=== PATIENT | female | born 1995 | race Two or more races ===

== ENCOUNTER 2018-11-24 12:51 | Emergency (ER) | payer MEDICAID ==
[~2018-11-24] VITALS: Ht 167.6 cm; Wt 63.5 kg
[2018-11-24 12:51] VITALS: BP 110/80
[~2018-11-24 12:51] MED LIST: NKM
--- NOTE | 2018-11-24 12:51 | NUR ---
ED Nurse Note: Patient brought in by ambulance RA [id number] from home c/o abdominal pain"all over her lower abdomen", nausea and vomiting since 5AM this morning. patient is actively vomiting yellow contents. patient reports hx of gastritis. patient denies diarrhea. her big cousin by the bedside. instructed patient should not be drinking or eating at this time, until being seen by a doctor and get cleared.
[2018-11-24] MEDS ORDERED: LORazepam Inj 2mg/ml 1ml IV ONE (13:15)
--- NOTE | 2018-11-24 13:25 | NUR ---
ED Nurse Note: patient reports she is unable to give urine sample at this time notified Dr. Price.
[2018-11-24] MEDS ORDERED: Morphine Sulfate 4mg/ml Inj (IV USE ONLY) IVP ONE (13:30)
[2018-11-24 13:39] LABS: HEMOGLOBIN 12.4 G/DL (12.0-16.0); MEAN CORPUSCULAR VOLUME 87 FL (80-99); PLATELET COUNT 325 K/UL (150-450); RED BLOOD COUNT 4.25 M/UL (4.20-5.40); RED CELL DISTRIBUTION WIDTH 11.3 % (11.6-14.8); WHITE BLOOD COUNT 13.3 K/UL (4.8-10.8)
[2018-11-24 13:40] LABS: ANION GAP 10 mmol/L (5-15); BLOOD UREA NITROGEN 5 mg/dL (7-18); CALCIUM 9.3 MG/DL (8.5-10.1); CARBON DIOXIDE 22 MMOL/L (21-32); CHLORIDE 101 MMOL/L (98-107); CREATININE 0.7 MG/DL (0.55-1.30); SODIUM 133 MMOL/L (136-145)
[2018-11-24 13:45] VITALS: BP 117/54
[2018-11-24 13:45] LABS: ALANINE AMINOTRANSFERASE 12 U/L (12-78); ALBUMIN 4.4 G/DL (3.4-5.0); ALBUMIN/GLOBULIN RATIO 1.2 (1.0-2.7); ALKALINE PHOSPHATASE 88 U/L (46-116); ASPARTATE AMINO TRANSFERASE 13 U/L (15-37); BILIRUBIN,TOTAL 0.4 MG/DL (0.2-1.0)
--- NOTE | 2018-11-24 14:10 | NUR ---
ED Nurse Note: patient taken to U/S in stable vital sign.
[2018-11-24] MEDS ORDERED: D5 1/2NS w/KCl 20mEq 1,000 ML IV SCH (15:00)
--- NOTE | 2018-11-24 15:10 | Emergency Room Report ---
History of Present Illness General Chief Complaint: Abdominal Pain Source: Patient Present Illness HPI Patient is a 22-year-old female presents after increased lower abdominal pain. Patient reports having acute onset of symptoms approximate 5:00 this morning. She reports having multiple episodes of vomiting as well as diarrhea. She reports having normal menstrual periods. She reports having increased abdominal discomfort which is severe in nature. She denies any fever. She reports having prior appendectomy as well as cholecystectomy. She denies any fever. She reports feeling hot. Allergies: Coded Allergies: No Known Allergies (Unverified , 11/24/18) Patient History Last Menstrual Period: Now: No Reviewed Nursing Documentation: PMH: Agreed; PSxH: Agreed Nursing Documentation-PMH Past Medical History: No History, Except For Hx Gastrointestinal Problems: Yes - GASTRITIS Review of Systems All Other Systems: negative except mentioned in HPI Physical Exam Vital Signs Date Time Temp Pulse Resp B/P (MAP) Pulse Ox O2 Delivery O2 Flow Rate FiO2 11/24/18 12:46 97.9 100 16 110/80 (90) 99 Room Air Sp02 EP Interpretation: reviewed, normal General Appearance: alert, GCS 15, mild distress Head: atraumatic ENT: normal ENT inspection, hearing grossly normal, normal voice Neck: normal inspection, full range of motion, supple, no bony tend Respiratory: normal inspection, lungs clear, normal breath sounds, no respiratory distress, no retraction, no wheezing Cardiovascular #1: normal inspection, regular rate, rhythm, no edema Gastrointestinal: normal bowel sounds, non tender, soft, no guarding, no hernia , tenderness, other - laporoscopic surgica Genitourinary: no CVA tenderness Musculoskeletal: normal inspection, back normal, normal range of motion Neurologic: normal inspection, alert, responsive, speech normal Psychiatric: normal inspection, judgement/insight normal, mood/affect normal Medical Decision Making Diagnostic Impression: Primary Impression: Intrauterine Additional Impressions: Hyperemesis Marijuana smoker Cigarette smoker ER Course Patient is a 22-year-old female presented after increased abdominal pain and vomiting. Differential diagnosis include was not limited to ruptured ectopic , ovarian torsion, kidney stone, gastroenteritis among others. Because of complexity of patient's case laboratory testing and imaging studies were ordered. Patient was noted to have increased lower abdominal cramping. She was noted to be pelvic ultrasound which showed intrauterine approximately 6 weeks. This appeared to be viable. Patient was noted to have significant discomfort was given IV morphine as well as IV Zofran and Reglan for nausea. She was noted to have some improvement after medications. She was given capsaicin topically which seemed to improve her pain dramatically. Patient given IV hydration due to episodes of vomiting. She was also given oral potassium. Patient appears to be stable for discharge and follow-up with primary care physician. Labs Test 11/24/18 13:16 11/24/18 14:56 White Blood Count 13.3 K/UL (4.8-10.8) Red Blood Count 4.25 M/UL (4.20-5.40) Hemoglobin 12.4 G/DL (12.0-16.0) Hematocrit 37.0 % (37.0-47.0) Mean Corpuscular Volume 87 FL (80-99) Mean Corpuscular Hemoglobin 29.3 PG (27.0-31.0) Mean Corpuscular Hemoglobin Concent 33.6 G/DL (32.0-36.0) Red Cell Distribution Width 11.3 % (11.6-14.8) Platelet Count 325 K/UL (150-450) Mean Platelet Volume 6.2 FL (6.5-10.1) Neutrophils (%) (Auto) % (45.0-75.0) Lymphocytes (%) (Auto) % (20.0-45.0) Monocytes (%) (Auto) % (1.0-10.0) Eosinophils (%) (Auto) % (0.0-3.0) Basophils (%) (Auto) % (0.0-2.0) Differential Total Cells Counted 100 Neutrophils % (Manual) 91 % (45-75) Lymphocytes % (Manual) 6 % (20-45) Monocytes % (Manual) 3 % (1-10) Eosinophils % (Manual) 0 % (0-3) Basophils % (Manual) 0 % (0-2) Band Neutrophils 0 % (0-8) Platelet Estimate Adequate Platelet Morphology Normal Red Blood Cell Morphology Normal Prothrombin Time 10.6 SEC (9.30-11.50) Prothromb Time International Ratio 1.0 (0.9-1.1) Activated Partial Thromboplast Time 26 SEC (23-33) Sodium Level 133 MMOL/L (136-145) Potassium Level 3.0 MMOL/L (3.5-5.1) Chloride Level 101 MMOL/L (98-107) Carbon Dioxide Level 22 MMOL/L (21-32) Anion Gap 10 mmol/L (5-15) Blood Urea Nitrogen 5 mg/dL (7-18) Creatinine 0.7 MG/DL (0.55-1.30) Estimat Glomerular Filtration Rate > 60 mL/min (>60) Glucose Level 128 MG/DL (74-106) Calcium Level 9.3 MG/DL (8.5-10.1) Total Bilirubin 0.4 MG/DL (0.2-1.0) Aspartate Amino Transf (AST/SGOT) 13 U/L (15-37) Alanine Aminotransferase (ALT/SGPT) 12 U/L (12-78) Alkaline Phosphatase 88 U/L (46-116) Total Protein 8.2 G/DL (6.4-8.2) Albumin 4.4 G/DL (3.4-5.0) Globulin 3.8 g/dL Albumin/Globulin Ratio 1.2 (1.0-2.7) Lipase 69 U/L (73-393) Urine Color Pale yellow Urine Appearance Clear Urine pH 8 (4.5-8.0) Urine Specific [place] 1.010 (1.005-1.035) Urine Protein Negative (NEGATIVE) Urine Glucose (UA) Negative (NEGATIVE) Urine Ketones 2+ (NEGATIVE) Urine Blood 1+ (NEGATIVE) Urine Nitrite Negative (NEGATIVE) Urine Bilirubin Negative (NEGATIVE) Urine Urobilinogen Normal MG/DL (0.0-1.0) Urine Leukocyte Esterase Negative (NEGATIVE) Urine RBC 2-4 /HPF (0 - 2) Urine WBC 0-2 /HPF (0 - 2) Urine Squamous Epithelial Cells Few /LPF (NONE/OCC) Urine Bacteria Few /HPF (NONE) Urine HCG, Qualitative Positive (NEGATIVE) Urine Opiates Screen Positive (NEGATIVE) Urine Barbiturates Screen Negative (NEGATIVE) Phencyclidine (PCP) Screen Negative (NEGATIVE) Urine Amphetamines Screen Negative (NEGATIVE) Urine Benzodiazepines Screen Negative (NEGATIVE) Urine Cocaine Screen Negative (NEGATIVE) Urine Marijuana (THC) Screen Positive (NEGATIVE) Last Vital Signs Date Time Temp Pulse Resp B/P (MAP) Pulse Ox O2 Delivery O2 Flow Rate FiO2 11/24/18 13:53 97.9 11/24/18 13:45 66 24 117/54 100 Room Air Status: improved Disposition: HOME, SELF-CARE Condition: Stable Jerad Price MD Nov 24, 2018 15:10
[2018-11-24 15:12] LABS: APPEARANCE,URINE CLEAR; BILIRUBIN, URINE NEGATIVE (NEGATIVE); COLOR,URINE PALE YELLOW; GLUCOSE, URINE (UA) NEGATIVE (NEGATIVE); KETONES,URINE 2+ (NEGATIVE); LEUKOCYTE ESTERASE ,URINE NEGATIVE (NEGATIVE); NITRITE,URINE NEGATIVE (NEGATIVE); PH,URINE 8 (4.5-8.0); PROTEIN,URINE NEGATIVE (NEGATIVE); UROBILINOGEN,URINE NORMAL MG/DL (0.0-1.0)
[2018-11-24] MEDS ORDERED: Metoclopramide 10mg/2ml Inj IVP ONE (15:15)
[2018-11-24] MEDS ORDERED: DiphenhydrAMINE 50mg/ml Inj IVP ONE (15:15)
[2018-11-24] MEDS ORDERED: Capsaicin 0.075% Cream TOPIC ONE (15:30)
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
[2018-11-24] MEDS ORDERED: ONDANSETRON ODT4 MG BC (16:31)
--- NOTE | 2018-11-24 19:05 | NUR ---
HAND-OFF: Report given to Debbie ARCE.
--- NOTE | 2018-11-24 19:09 | NUR ---
report received from YAZMIN Farmer
[2018-11-24 19:20] VITALS: BP 110/60
--- NOTE | 2018-11-24 19:20 | NUR ---
ER DISCHARGE NOTE: Patient is cleared to be discharged per ERMD, pt is aox4, on room air, with stable vital signs. pt was given dc and prescription instructions, pt was able to verbalize understanding, pt id band and iv site removed without complications. pt is able to ambulate with steady gait. pt took all belongings.
== END 2018-11-24 19:20 | disposition home or self-care (01) ==
LOC: EDBD 12:51 → EMR 15:50
DX: O26.891 Other specified pregnancy related conditions, first trimester (principal); Z3A.01 Less than 8 weeks gestation of pregnancy; R10.30 Lower abdominal pain, unspecified; O21.0 Mild hyperemesis gravidarum; F17.210 Nicotine dependence, cigarettes, uncomplicated
CPT/HCPCS: 36415; 76801; 80053; 80307; 81003; 81025; 83690; 84702; 85007; 85025; 85610; 85730; 86850; 86900; 86901; 96361; 96365; 96366; 96375; 96376; 99284; J1200; J2270; J2405; J2765; J8499

== ENCOUNTER → 2020-01-24 | Emergency (ER) | payer MEDICAID ==
[~2020-01-24] VITALS: Ht 162.6 cm; Wt 69.4 kg
[~2020-01-24] MED LIST changes: +CEPHALEXIN500 MG ORAL; +Capsaicin 0.075% Cream TOPIC STA; +Dicyclomine HCl 10mg/5ml oral soln ORAL ONE; +DiphenhydrAMINE 50mg/ml Inj IVP ONE; +Haloperidol Lactate 2 MG in D5W 55 ML IVPB ONE; +LORazepam Inj 2mg/ml 1ml IV ONE; +Lidocaine 2% Visc 15ml soln ORAL ONE; +Mylanta II UD 30ml ORAL ONE; +ONDANSETRON ODT4 MG BC; +REGLAN5 MG ORAL; +ZOFRAN ODT8 MG ORAL
--- NOTE | 2020-01-24 15:14 | Emergency Room Report ---
History of Present Illness General Chief Complaint: Abdominal Pain Source: Patient Present Illness HPI 24-year-old female with history of appendectomy and cholecystectomy, history of cannabinol hyperemesis syndrome, here with vomiting and abdominal pain. Patient says her symptoms started early this morning around 12 hours prior to coming to the emergency department. Has vomited multiple times nonbilious and nonbloody. Admits to daily marijuana smoking. Denies other drug use or alcohol use. States pain is sharp in nature, located diffusely and worse in the epigastric region, does not otherwise radiate. No fevers, chills, chest pain, palpitations, shortness of breath, back pain, diarrhea, dysuria. Allergies: Coded Allergies: No Known Allergies (Unverified , 11/24/18) COVID-19 Screening Contact w/high risk pt: No Experienced COVID-19 symptoms?: No COVID-19 Testing performed FINANCIAL REPORTING MANAGER: No Nursing Documentation-[facility] Past Medical History: No History, Except For Hx Gastrointestinal Problems: Yes - GASTRITIS Review of Systems All Other Systems: negative except mentioned in HPI Physical Exam Vital Signs Date Time Temp Pulse Resp B/P (MAP) Pulse Ox O2 Delivery O2 Flow Rate FiO2 01/24/20 14:52 98.4 76 20 127/84 (98) 98 Room Air Sp02 EP Interpretation: reviewed, normal General Appearance: alert, non-toxic, other - Appears highly uncomfortable, writhing in bed complaining of pain Head: normocephalic, atraumatic Eyes: bilateral eye normal inspection, bilateral eye PERRL ENT: hearing grossly normal, normal pharynx, no angioedema, normal voice Neck: full range of motion, supple/symm/no masses Respiratory: chest non-tender, lungs clear, normal breath sounds, speaking full sentences Cardiovascular #1: regular rate, rhythm, no edema Cardiovascular #2: 2+ carotid (R), 2+ carotid (L), 2+ radial (R), 2+ radial (L), 2+ dorsalis pedis (R), 2+ dorsalis pedis (L) Gastrointestinal: normal bowel sounds, soft, non-distended, no guarding, no rebound, other - Old appearing healed surgical scars in the right lower quadrant and right upper quadrant. Abdomen nondistended, no rebound or guarding. Subjective tenderness on palpation diffusely Rectal: deferred Genitourinary: normal inspection, no CVA tenderness Musculoskeletal: back normal, normal range of motion, calf tenderness, gait/station normal, non-tender Neurologic: alert, motor strength/tone normal, sensory intact, responsive, speech normal Psychiatric: judgement/insight normal, memory normal, mood/affect normal, no suicidal/homicidal ideation Lymphatic: no adenopathy Medical Decision Making Diagnostic Impression: Primary Impression: Asymptomatic bacteriuria Additional Impressions: Early stage of Vomiting ER Course Total critical care time: Approximately 25 minutes Due to a high probability of clinically significant, life threatening deterioration, the patient required the highest level of preparedness to intervene emergently and I personally spent this critical care time directly and personally managing the patient. This critical care time included obtaining a history, examining the patient, pulse oximetry, ordering and reviewing studies, ordering treatments, evaluating response to treatment and updating management plan as needed, frequent reassessment and discussion with other providers as well as arranging for ultimate disposition. This critical to care time was performed to assess and manage the high probability of life-threatening d eterioration that could result in multiorgan failure. This critical care time is separate from the separately billable procedures and treating other patients. Laboratory Tests Test 01/24/20 15:15 01/24/20 16:35 White Blood Count 11.6 K/UL (4.8-10.8) H Red Blood Count 4.84 M/UL (4.20-5.40) Hemoglobin 13.0 G/DL (12.0-16.0) Hematocrit 40.2 % (37.0-47.0) Mean Corpuscular Volume 83 FL (80-99) Mean Corpuscular Hemoglobin 26.9 PG (27.0-31.0) L Mean Corpuscular Hemoglobin Concent 32.4 G/DL (32.0-36.0) Red Cell Distribution Width 14.6 % (11.6-14.8) Platelet Count 428 K/UL (150-450) Mean Platelet Volume 5.8 FL (6.5-10.1) L Neutrophils (%) (Auto) 86.6 % (45.0-75.0) H Lymphocytes (%) (Auto) 8.8 % (20.0-45.0) L Monocytes (%) (Auto) 3.2 % (1.0-10.0) Eosinophils (%) (Auto) 0.1 % (0.0-3.0) Basophils (%) (Auto) 1.3 % (0.0-2.0) Sodium Level 140 MMOL/L (136-145) Potassium Level 3.4 MMOL/L (3.5-5.1) L Chloride Level 104 MMOL/L (98-107) Carbon Dioxide Level 22 MMOL/L (21-32) Anion Gap 14 mmol/L (5-15) Blood Urea Nitrogen 10 mg/dL (7-18) Creatinine 0.7 MG/DL (0.55-1.30) Estimated Glomerular Filtration Rate > 60 mL/min (>60) Glucose Level 138 MG/DL (74-106) H Calcium Level 9.4 MG/DL (8.5-10.1) Total Bilirubin 0.4 MG/DL (0.2-1.0) Aspartate Amino Transferase (AST) 17 U/L (15-37) Alanine Aminotransferase (ALT) 16 U/L (12-78) Alkaline Phosphatase 108 U/L (46-116) Total Protein 8.7 G/DL (6.4-8.2) H Albumin 4.7 G/DL (3.4-5.0) Globulin 4.0 g/dL Albumin/Globulin Ratio 1.2 (1.0-2.7) Lipase 76 U/L (73-393) Human Chorionic Gonadotropin, Quant 234 mIU/mL (1-6) H Urine Color Pale yellow Urine Appearance Slightly cloudy Urine pH 7 (4.5-8.0) Urine Specific [place] 1.005 (1.005-1.035) Urine Protein Negative (NEGATIVE) Urine Glucose (UA) Negative (NEGATIVE) Urine Ketones 1+ (NEGATIVE) H Urine Blood Negative (NEGATIVE) Urine Nitrite Negative (NEGATIVE) Urine Bilirubin Negative (NEGATIVE) Urine Urobilinogen Normal MG/DL (0.0-1.0) Urine Leukocyte Esterase Negative (NEGATIVE) Urine RBC 0-2 /HPF (0 - 2) Urine WBC 0-2 /HPF (0 - 2) Urine Squamous Epithelial Cells Few /LPF (NONE/OCC) Urine Bacteria Occasional /HPF (NONE) Urine HCG, Qualitative Positive (NEGATIVE) Urine Opiates Screen Negative (NEGATIVE) Urine Barbiturates Screen Negative (NEGATIVE) Phencyclidine (PCP) Screen Negative (NEGATIVE) Urine Amphetamines Screen Negative (NEGATIVE) Urine Benzodiazepines Screen Negative (NEGATIVE) Urine Cocaine Screen Negative (NEGATIVE) Urine Marijuana (THC) Screen Positive (NEGATIVE) H 24-year-old female here with lower abdominal discomfort and vomiting. Patient was hemodynamically stable in the emergency department. She was initially attempting to elope from the emergency department "because I just want to leave. I do not feel good." The patient was able to be verbally de-escalated. She was given Haldol and Ativan. She had good resolution of her symptoms and her agitation. test came back positive. She had evidence of bacteriuria but was denying any symptoms of cystitis. She was given a prescription for Keflex for her asymptomatic bacteriuria. Pelvic ultrasound was performed however hCG level was very low and no evidence of ectopic or intrauterine were seen. 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 She was unable to tell me when her last menstrual period was. I told the patient that she may have a ectopic and needs proper follow-up. She expressed understanding and was discharged. Last Vital Signs Date Time Temp Pulse Resp B/P (MAP) Pulse Ox O2 Delivery O2 Flow Rate FiO2 01/24/20 14:52 98.4 76 20 127/84 (98) 98 Room Air Scripts Cephalexin* (KEFLEX*) 500 Mg Capsule 500 MG ORAL EVERY 12 HOURS for 7 Days, #14 CAP 0 Refills Prov: Willis Cardenas M.D. 01/24/20 Metoclopramide Hcl* (REGLAN*) 5 Mg Tablet 5 MG ORAL EVERY 6 HOURS for 7 Days, #14 TAB Prov: Willis Cardenas M.D. 01/24/20 Willis Cardenas M.D. Jan 24, 2020 15:14
[2020-01-24 15:38] LABS: HEMATOCRIT 40.2 % (37.0-47.0); MEAN CORPUSCULAR VOLUME 83 FL (80-99); PLATELET COUNT 428 K/UL (150-450); RED BLOOD COUNT 4.84 M/UL (4.20-5.40); RED CELL DISTRIBUTION WIDTH 14.6 % (11.6-14.8); WHITE BLOOD COUNT 11.6 K/UL (4.8-10.8)
[2020-01-24 15:39] LABS: LYMPHOCYTES % (AUTO) 8.8 % (20.0-45.0); NEUTROPHILS % (AUTO) 86.6 % (45.0-75.0)
[2020-01-24 15:40] LABS: BASOPHILS % (AUTO) 1.3 % (0.0-2.0); EOSINOPHILS % (AUTO) 0.1 % (0.0-3.0); MONOCYTES % (AUTO) 3.2 % (1.0-10.0)
[2020-01-24 15:46] LABS: ANION GAP 14 mmol/L (5-15); BLOOD UREA NITROGEN 10 mg/dL (7-18); CALCIUM 9.4 MG/DL (8.5-10.1); CARBON DIOXIDE 22 MMOL/L (21-32); CHLORIDE 104 MMOL/L (98-107); CREATININE 0.7 MG/DL (0.55-1.30); POTASSIUM 3.4 MMOL/L (3.5-5.1); SODIUM 140 MMOL/L (136-145)
[2020-01-24 15:51] LABS: ALANINE AMINOTRANSFERASE 16 U/L (12-78); ALBUMIN 4.7 G/DL (3.4-5.0); ALBUMIN/GLOBULIN RATIO 1.2 (1.0-2.7); ALKALINE PHOSPHATASE 108 U/L (46-116); ASPARTATE AMINO TRANSFERASE 17 U/L (15-37); BILIRUBIN,TOTAL 0.4 MG/DL (0.2-1.0)
[2020-01-24 17:07] LABS: APPEARANCE,URINE SLIGHTLY CLOUDY; BILIRUBIN, URINE NEGATIVE (NEGATIVE); COLOR,URINE PALE YELLOW; GLUCOSE, URINE (UA) NEGATIVE (NEGATIVE); KETONES,URINE 1+ (NEGATIVE); LEUKOCYTE ESTERASE ,URINE NEGATIVE (NEGATIVE); NITRITE,URINE NEGATIVE (NEGATIVE); PH,URINE 7 (4.5-8.0); PROTEIN,URINE NEGATIVE (NEGATIVE); UROBILINOGEN,URINE NORMAL MG/DL (0.0-1.0)
--- NOTE | 2020-01-24 18:18 | Diagnostic Imaging Report ---
EXAM: US First Trimester , Transabdominal and Transvaginal CLINICAL HISTORY: PAIN TECHNIQUE: Real-time transabdominal and transvaginal obstetrical ultrasound of the maternal pelvis and a first trimester with image documentation. Transvaginal imaging was used for better evaluation of the fetus and adnexa. COMPARISON: No previous studies. FINDINGS: Gestation: No intrauterine gestation is noted. Early intrauterine or ectopic gestations cannot be performed per Placenta/amniotic fluid: Cannot be adequately evaluated due to the early gestational age. Uterus/cervix: Possible bicornuate uterus. Heterogeneity of the uterine parenchyma. The uterus measures 5.7 x 4.7 x 3.5 cm. Endometrial stripe measures 1.1 cm. No myometrial mass. Ovaries: The left ovary measures 3.7 x 1.9 x 2.9 cm. Right ovary measures 3 x 2.1 x 3.3 cm. A 1 cm complex right ovarian cyst is noted, possibly a corpus luteum cyst. Normal flow to the ovaries. Free fluid: No free fluid. IMPRESSION: 1. 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 Heterogeneity of the uterine parenchyma of uncertain significance. 3. No intrauterine gestational sac. 4. Early intrauterine or ectopic gestations cannot be excluded and clinical correlation and correlation with laboratory values are advised. 5. Possible right ovarian corpus luteum cyst per 6. Flow is demonstrated to both ovaries.
[2020-01-24 18:23] VITALS: BP 118/74
== END | disposition home or self-care (01) ==
LOC: EDUNIT# 14:41 → EDBD 14:52 → EMR 15:15
DX: O21.9 Vomiting of pregnancy, unspecified (principal); R82.71 Bacteriuria; Z90.89 Acquired absence of other organs; Z90.49 Acquired absence of other specified parts of digestive tract; O34.80 Maternal care for other abnormalities of pelvic organs, unspecified trimester; N83.209 Unspecified ovarian cyst, unspecified side; Z3A.00 Weeks of gestation of pregnancy not specified
CPT/HCPCS: 36415; 76801; 80053; 80307; 81003; 81025; 83690; 84702; 85025; 96361; 96374; 96375; J1200; J1630; J7030; S0028; Z7502; 99291

== ENCOUNTER 2020-03-13 21:04 | Emergency (ER) | payer MEDICAID ==
[~2020-03-13] VITALS: Ht 162.6 cm; Wt 79.4 kg
[~2020-03-13 21:04] MED LIST changes: -Capsaicin 0.075% Cream TOPIC STA; -Dicyclomine HCl 10mg/5ml oral soln ORAL ONE; -DiphenhydrAMINE 50mg/ml Inj IVP ONE; -Haloperidol Lactate 2 MG in D5W 55 ML IVPB ONE; -LORazepam Inj 2mg/ml 1ml IV ONE; -Lidocaine 2% Visc 15ml soln ORAL ONE; -Mylanta II UD 30ml ORAL ONE
--- NOTE | 2020-03-13 21:10 | NUR ---
ED Nurse Note: Pt BIBA from home c/o N/V for 6hrs without relief, pt has a hx of colitis. Pt does not regularly taken medication r/t symptoms. PT is A&Ox4, VSS. Pt actively vomiting. PT placed on vehicle monitor technician, IV established and blood sent to lab.
[2020-03-13 21:22] VITALS: BP 125/79
[2020-03-13] MEDS ORDERED: D5NS 1,000 ML IV ONE (21:30)
[2020-03-13] MEDS ORDERED: Morphine Sulfate 4mg/ml Inj (IV USE ONLY) IVP ONE (21:30)
[2020-03-13 21:53] LABS: HEMATOCRIT 42.6 % (37.0-47.0); HEMOGLOBIN 14.1 G/DL (12.0-16.0); MEAN CORPUSCULAR VOLUME 85 FL (80-99); PLATELET COUNT 428 K/UL (150-450); RED BLOOD COUNT 5.03 M/UL (4.20-5.40); RED CELL DISTRIBUTION WIDTH 14.2 % (11.6-14.8); WHITE BLOOD COUNT 17.3 K/UL (4.8-10.8)
[2020-03-13 21:55] LABS: ANION GAP 13 mmol/L (5-15); BLOOD UREA NITROGEN 10 mg/dL (7-18); CALCIUM 9.5 MG/DL (8.5-10.1); CARBON DIOXIDE 24 MMOL/L (21-32); CHLORIDE 100 MMOL/L (98-107); POTASSIUM 3.4 MMOL/L (3.5-5.1); SODIUM 137 MMOL/L (136-145)
[2020-03-13 21:59] LABS: ALANINE AMINOTRANSFERASE 18 U/L (12-78); ALBUMIN/GLOBULIN RATIO 1.2 (1.0-2.7); ALKALINE PHOSPHATASE 114 U/L (46-116); ASPARTATE AMINO TRANSFERASE 17 U/L (15-37); BILIRUBIN,TOTAL 0.5 MG/DL (0.2-1.0)
[2020-03-13] MEDS ORDERED: Omnipaque-300 100ml vial INJ PRN (22:15)
--- NOTE | 2020-03-13 22:15 | Emergency Room Report ---
History of Present Illness General Chief Complaint: Vomiting Present Illness HPI Patient is a 24-year-old female presents for increased nausea and vomiting. Reports having some increased watery diarrhea as well as suprapubic abdominal pain. Prior history of colitis. She states is not taking any medications. Patient states she does smoke marijuana intermittently. Denies any recent fever. Currently taking oral contraceptives. Reports having pain and multiple similar episodes of this type in the past. Allergies: Coded Allergies: No Known Allergies (Unverified , 11/24/18) COVID-19 Screening Contact w/high risk pt: No Experienced COVID-19 symptoms?: No COVID-19 Testing performed THEATER TEACHER: No Patient History Past Medical History: see triage record Last Menstrual Period: 01/2020 Reviewed Nursing Documentation: PMH: Agreed; PSxH: Agreed Nursing Documentation-PMH Hx Gastrointestinal Problems: Yes - GASTRITIS, COLITIS Review of Systems All Other Systems: negative except mentioned in HPI Physical Exam Vital Signs Date Time Temp Pulse Resp B/P (MAP) Pulse Ox O2 Delivery O2 Flow Rate FiO2 03/13/20 21:04 98.4 70 20 125/79 (94) 98 Room Air Sp02 EP Interpretation: reviewed, normal General Appearance: no apparent distress, alert, GCS 15, moderate distress Head: atraumatic ENT: normal ENT inspection, hearing grossly normal, normal voice Neck: normal inspection, full range of motion, supple, no bony tend Respiratory: normal inspection, lungs clear, normal breath sounds, no respiratory distress, no retraction, no wheezing Cardiovascular #1: regular rate, rhythm, no edema Gastrointestinal: normal inspection, normal bowel sounds, non tender, soft, no guarding, no hernia Genitourinary: no CVA tenderness Musculoskeletal: normal inspection, back normal, normal range of motion Neurologic: alert, motor strength/tone normal, geriatric psychiatrist III-XII nml as tested, oriented x3, responsive, speech normal, normal inspection Psychiatric: normal inspection, judgement/insight normal, mood/affect normal Medical Decision Making Diagnostic Impression: Primary Impression: Abdominal pain ER Course Patient presented for abdominal pain. Differential diagnosis include was not limited to colitis, gastroenteritis, bowel obstruction, marijuana hyperemesis among others. Because of complexity of patient's case laboratory tests and imaging studies were ordered. Abdominal ultrasound was ordered due to patient's complaint of lower abdominal pain. Patient was noted to have elevated white blood count and was started on IV fluids and given IV antiemetics and pain medication.Patient was endorsed to Dr. Magallanes pending imaging studies. Labs Test 03/13/20 21:15 White Blood Count 17.3 K/UL (4.8-10.8) Red Blood Count 5.03 M/UL (4.20-5.40) Hemoglobin 14.1 G/DL (12.0-16.0) Hematocrit 42.6 % (37.0-47.0) Mean Corpuscular Volume 85 FL (80-99) Mean Corpuscular Hemoglobin 28.1 PG (27.0-31.0) Mean Corpuscular Hemoglobin Concent 33.2 G/DL (32.0-36.0) Red Cell Distribution Width 14.2 % (11.6-14.8) Platelet Count 428 K/UL (150-450) Mean Platelet Volume 6.3 FL (6.5-10.1) Neutrophils (%) (Auto) % (45.0-75.0) Lymphocytes (%) (Auto) % (20.0-45.0) Monocytes (%) (Auto) % (1.0-10.0) Eosinophils (%) (Auto) % (0.0-3.0) Basophils (%) (Auto) % (0.0-2.0) Prothrombin Time 11.1 SEC (9.30-11.50) Prothromb Time International Ratio 1.0 (0.9-1.1) Activated Partial Thromboplast Time 25 SEC (23-33) Sodium Level 137 MMOL/L (136-145) Potassium Level 3.4 MMOL/L (3.5-5.1) Chloride Level 100 MMOL/L (98-107) Carbon Dioxide Level 24 MMOL/L (21-32) Anion Gap 13 mmol/L (5-15) Blood Urea Nitrogen 10 mg/dL (7-18) Creatinine 1.0 MG/DL (0.55-1.30) Estimat Glomerular Filtration Rate > 60 mL/min (>60) Glucose Level 136 MG/DL (74-106) Calcium Level 9.5 MG/DL (8.5-10.1) Total Bilirubin 0.5 MG/DL (0.2-1.0) Aspartate Amino Transf (AST/SGOT) 17 U/L (15-37) Alanine Aminotransferase (ALT/SGPT) 18 U/L (12-78) Alkaline Phosphatase 114 U/L (46-116) Total Protein 9.3 G/DL (6.4-8.2) Albumin 5.0 G/DL (3.4-5.0) Globulin 4.3 g/dL Albumin/Globulin Ratio 1.2 (1.0-2.7) Lipase 60 U/L (73-393) Last Vital Signs Date Time Temp Pulse Resp B/P (MAP) Pulse Ox O2 Delivery O2 Flow Rate FiO2 03/13/20 21:22 98.4 70 20 125/79 98 Room Air Status: improved Disposition: ADMITTED INPATIENT Condition: Stable Referrals: [facility],REFERRING (PCP) Jerad Price MD Mar 13, 2020 22:15
[2020-03-13] MEDS ORDERED: DiphenhydrAMINE 50mg/ml Inj IVP ONE (22:30)
[2020-03-13] MEDS: Metoclopramide 10mg/10ml Liq NG ONE ×2 (22:36→22:40)
[2020-03-13 23:00] VITALS: BP 128/72
[2020-03-13] MEDS ORDERED: Metoclopramide 10mg/2ml Inj IVP ONE (23:00)
--- NOTE | 2020-03-13 23:02 | NUR ---
ED Nurse Note: Urine sent to lab
--- NOTE | 2020-03-13 23:04 | NUR ---
ED Nurse Note: Pt to CT
[2020-03-13 23:09] LABS: APPEARANCE,URINE CLEAR; BILIRUBIN, URINE NEGATIVE (NEGATIVE); COLOR,URINE PALE YELLOW; GLUCOSE, URINE (UA) 4+ (NEGATIVE); KETONES,URINE 2+ (NEGATIVE); LEUKOCYTE ESTERASE ,URINE NEGATIVE (NEGATIVE); NITRITE,URINE NEGATIVE (NEGATIVE); PH,URINE 8 (4.5-8.0); PROTEIN,URINE 1+ (NEGATIVE); UROBILINOGEN,URINE NORMAL MG/DL (0.0-1.0)
--- NOTE | 2020-03-13 23:38 | NUR ---
ED Nurse Note: Pt noted appearing sedated after recieving last dose of reglan and benadryl but is asking for pain medication, ERMD notified.
--- NOTE | 2020-03-13 23:49 | Diagnostic Imaging Report ---
EXAM: CT Abdomen and Pelvis With Intravenous Contrast CLINICAL HISTORY: PAIN TECHNIQUE: Axial computed tomography images of the abdomen and pelvis with intravenous contrast. CTDI is 5.8 mGy and DLP is 314.7 mGy-cm. One or more of the following dose reduction techniques were used: automated exposure control, adjustment of the mA and/or kV according to patient size, use of iterative reconstruction technique. COMPARISON: No relevant prior studies available. FINDINGS: Lung bases: Unremarkable. ABDOMEN: Liver: Unremarkable. Gallbladder and bile ducts: Cholecystectomy and biliary ectasia. Pancreas: Unremarkable. Spleen: Unremarkable. Adrenals: Unremarkable. Kidneys and ureters: Right renal stone. Stomach and bowel: Colon is underdistended and not well assessed. Correlate with GI symptoms if there is any concern for colitis. PELVIS: Appendix: Appendix not identified. Bladder: Unremarkable. Reproductive: IUD. Dominant follicle in the right ovary. ABDOMEN and PELVIS: Intraperitoneal space: Trace fluid in the pelvis. Bones/joints: No acute fracture. Soft tissues: Unremarkable. Vasculature: Unremarkable. No abdominal aortic aneurysm. Lymph nodes: No enlarged lymph nodes. IMPRESSION: Appendix not identified.
[2020-03-14] MEDS ORDERED: TYLENOL325 MG ORAL (00:05)
[2020-03-14] MEDS ORDERED: REGLAN10 MG ORAL (00:05)
[2020-03-14] MEDS ORDERED: FAMOTIDINE20 MG ORAL (00:05)
[2020-03-14] MEDS ORDERED: LORazepam 0.5mg tab ORAL ONE (00:15)
--- NOTE | 2020-03-14 00:15 | NUR ---
ED Nurse Note: Pt requesting ativan, ART denying at this time due to sedated state.
[2020-03-14 00:30] VITALS: BP 121/70
== END 2020-03-14 00:30 | disposition other institution (70) ==
LOC: EDBD 21:04 → EMR 21:31
DX: R10.30 Lower abdominal pain, unspecified (principal); F12.90 Cannabis use, unspecified, uncomplicated
CPT/HCPCS: 36415; 74177; 80053; 80307; 81003; 81025; 83690; 84703; 85007; 85025; 85610; 85730; 96361; 96374; 96375; J1200; J2270; J2405; J2765; J7030; Q9965; Z7502; 99284

== ENCOUNTER 2020-06-06 02:43 | Emergency (ER) | payer MEDICAID ==
[~2020-06-06] VITALS: Ht 162.6 cm; Wt 6.8 kg
[~2020-06-06 02:43] MED LIST changes: +FAMOTIDINE20 MG ORAL; +REGLAN10 MG ORAL; +TYLENOL325 MG ORAL
[2020-06-06 02:53] VITALS: BP 142/95
[2020-06-06] MEDS ORDERED: Morphine Sulfate 4mg/ml Inj (IV USE ONLY) IVP ONE (03:00)
--- NOTE | 2020-06-06 03:00 | NUR ---
ED Nurse Note: pt comes into ED via EMS, c/o middle back pain for the last 4 days with n/v. Pt lmp 02/2021. Pt is A&Ox3. VS WNL. Breathing without complications on RA.. 01/02 back pain. 20g LAC est. labs drawn and sent. awaiting results. will continue to monitor.
--- NOTE | 2020-06-06 03:01 | Emergency Room Report ---
History of Present Illness General Chief Complaint: Abdominal Pain Source: Patient, Medical Record, EMS Present Illness HPI Is a 24-year-old female with a history of cyclic vomiting syndrome secondary to cannabis. She presents with chief complaint abdominal pain going to her back. Also has nausea and vomiting. Onset for last 4 days. No fever chills. Vomiting is nonbloody nonbilious. Pain is 9 out of 10. Worse with movement. Worse with eating. Denies any trauma. Similar symptom in the past. 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 COVID-19 Screening: Negative COVID-19 COVID-19 Testing Source: nasal Patient History Past Medical History: see triage record, old chart reviewed Past Surgical History: jennifer velasquez Pertinent Family History: none Social History: Denies: smoking Last Menstrual Period: irregular / mirena control Now: No Immunizations: other Reviewed Nursing Documentation: PMH: Agreed; PSxH: Agreed Nursing Documentation-PMH Hx Gastrointestinal Problems: Yes - GASTRITIS, COLITIS Review of Systems Eye: Denies: eye pain, blurred vision ENT: Denies: ear pain, nose congestion, throat swelling Respiratory: Denies: cough, shortness of breath Cardiovascular: Denies: chest pain, palpitations Gastrointestinal: Reports: abdominal pain, nausea, vomiting; Denies: diarrhea Musculoskeletal: Denies: back pain, joint pain Skin: Denies: rash Neurological: Denies: headache, numbness Endocrine: Denies: increased thirst, increased urine Hematologic/Lymphatic: Denies: easy bruising All Other Systems: negative except mentioned in HPI Physical Exam Vital Signs Date Time Temp Pulse Resp B/P (MAP) Pulse Ox O2 Delivery O2 Flow Rate FiO2 06/06/20 02:45 98.1 70 18 124/79 (94) 98 06/06/20 02:53 Room Air Vitals normal Sp02 EP Interpretation: reviewed, normal General Appearance: well appearing, no apparent distress, alert Head: normocephalic, atraumatic Eyes: bilateral eye PERRL, bilateral eye EOMI ENT: hearing grossly normal, normal pharynx Neck: full range of motion, supple, no meningismus Respiratory: chest non-tender, lungs clear, normal breath sounds Cardiovascular #1: regular rate, rhythm, no murmur Gastrointestinal: normal bowel sounds, no mass, no organomegaly, no bruit, non- distended, tenderness - Soft, mild diffuse tenderness Musculoskeletal: back normal, normal range of motion, gait/station normal Psychiatric: mood/affect normal Medical Decision Making Diagnostic Impression: Primary Impression: Abdominal pain Qualified Codes: R10.84 - Generalized abdominal pain Additional Impressions: Cannabinoid hyperemesis syndrome JONO (acute kidney injury) ER Course This patient presents with abdominal pain and nausea and vomiting. This is a chronic issue for her. No evidence of acute abdomen. Kidney function worsened because of the vomiting and dehydration. She received 3 L of fluid here. She felt better. No longer vomiting. Will discharge home. Last Vital Signs Date Time Temp Pulse Resp B/P (MAP) Pulse Ox O2 Delivery O2 Flow Rate FiO2 06/06/20 02:53 98.1 18 142/95 100 Room Air 06/06/20 02:53 74 Status: improved Disposition: HOME, SELF-CARE Condition: Improved Scripts Ondansetron (Zofran) 4 Mg Tablet 4 MG ORAL Q6H PRN for Nausea & Vomiting, #30 TAB 0 Refills Prov: Jae Rogers MD 06/06/20 Hydrocodone/Acetaminophen 5-325* (HYDROCODONE/ACETAMINOPHEN 5-325*) 1 Each Tablet 1 TAB ORAL Q6H PRN for For Pain, #10 TAB 0 Refills Prov: Jae Rogers MD 06/06/20 Referrals: [facility],REFERRING (PCP) Additional Instructions: Stop using marijuana. This may contribute to your vomiting. Follow-up with your doctor in 7 days. Advance diet as tolerated. Return if symptoms worsen. Jae Rogers MD Jun 06, 2020 03:01
[2020-06-06 03:08] LABS: BASOPHILS % (AUTO) 0.6 % (0.0-2.0); EOSINOPHILS % (AUTO) 0.3 % (0.0-3.0); HEMATOCRIT 49.5 % (37.0-47.0); HEMOGLOBIN 15.9 G/DL (12.0-16.0); LYMPHOCYTES % (AUTO) 14.6 % (20.0-45.0); MEAN CORPUSCULAR VOLUME 84 FL (80-99); MONOCYTES % (AUTO) 8.1 % (1.0-10.0); NEUTROPHILS % (AUTO) 76.5 % (45.0-75.0); PLATELET COUNT 453 K/UL (150-450); RED BLOOD COUNT 5.89 M/UL (4.20-5.40); RED CELL DISTRIBUTION WIDTH 12.8 % (11.6-14.8); WHITE BLOOD COUNT 14.2 K/UL (4.8-10.8)
[2020-06-06 03:21] LABS: ALBUMIN 4.9 G/DL (3.4-5.0); ALBUMIN/GLOBULIN RATIO 1.1 (1.0-2.7); BILIRUBIN,TOTAL 1.1 MG/DL (0.2-1.0); CALCIUM 9.7 MG/DL (8.5-10.1); CREATININE 1.9 MG/DL (0.55-1.30); POTASSIUM 2.8 MMOL/L (3.5-5.1)
[2020-06-06 03:48] LABS: BILIRUBIN,DIRECT 0.3 MG/DL (0.0-0.3)
[2020-06-06 04:40] VITALS: BP 112/60
--- NOTE | 2020-06-06 05:00 | NUR ---
ED Nurse Note: pt on 3rd Liter of NS. Still has not provided urine sample. pt states pain is now 3/10. pt sleeping comfortably on stretcher and easily arousable by name. vs wnl. will continue to monitor. good to go after IVF completed per MD.
[2020-06-06] MEDS ORDERED: ZOFRAN4 MG ORAL (05:04)
[2020-06-06] MEDS ORDERED: HYDROCODON-ACE1 EA15 ORAL (05:04)
[2020-06-06 05:51] VITALS: BP 112/60
== END 2020-06-06 05:45 | disposition home or self-care (01) ==
LOC: EDBD 02:43 → EMR 02:58
DX: R10.84 Generalized abdominal pain (principal); R11.2 Nausea with vomiting, unspecified; F12.10 Cannabis abuse, uncomplicated; N17.9 Acute kidney failure, unspecified
CPT/HCPCS: 36415; 80053; 82248; 83690; 85025; 96361; 96374; 96375; J2270; J2405; J7030; Z7502; 99284

== ENCOUNTER 2020-06-29 08:49 | Emergency (ER) | payer MEDICAID ==
[~2020-06-29] VITALS: Ht 165.1 cm; Wt 61.2 kg
[~2020-06-29 08:49] MED LIST changes: +HYDROCODON-ACE1 EA15 ORAL; +ZOFRAN4 MG ORAL
[2020-06-29] MEDS ORDERED: Pantoprazole Inj IVP ONE (10:00)
[2020-06-29] MEDS ORDERED: Morphine Sulfate 4mg/ml Inj (IV USE ONLY) IVP ONE ×2 (10:00→11:15)
--- NOTE | 2020-06-29 10:01 | Emergency Room Report ---
History of Present Illness General Chief Complaint: Nausea and Vomiting Source: Patient Present Illness HPI Patient is a 24-year-old female past medical history of cyclical vomiting who presents to the ER complaining of epigastric pain, nausea and vomiting for the past 2 days. She denies any fever or chills. She denies any diarrhea. She denies any dysuria or hematuria. She denies any chest pain or shortness of breath. She states that this is similar to her previous cyclical vomiting episodes. Allergies: Coded Allergies: No Known Allergies (Unverified , 06/06/20) COVID-19 Screening Contact w/high risk pt: No Experienced COVID-19 symptoms?: No Patient History Reviewed Nursing Documentation: PMH: Agreed; PSxH: Agreed Nursing Documentation-PMH Hx Gastrointestinal Problems: Yes - GASTRITIS, COLITIS Review of Systems All Other Systems: negative except mentioned in HPI Physical Exam Sp02 EP Interpretation: reviewed, normal General Appearance: alert, GCS 15, mild distress Head: normocephalic, atraumatic Eyes: bilateral eye normal inspection, bilateral eye PERRL ENT: hearing grossly normal, normal pharynx, no angioedema, normal voice Neck: full range of motion, no meningismus Respiratory: lungs clear, normal breath sounds, no respiratory distress, no accessory muscle use Cardiovascular #1: regular rate, rhythm Gastrointestinal: other - Epigastric tenderness to palpation with no guarding or rebound Rectal: deferred Genitourinary: no CVA tenderness Musculoskeletal: normal range of motion Neurologic: colorer machine III-XII nml as tested, oriented x3 Psychiatric: no suicidal/homicidal ideation Skin: no rash Lymphatic: no adenopathy Medical Decision Making Diagnostic Impression: Primary Impression: Cannabinoid hyperemesis syndrome Additional Impression: Intractable cyclical vomiting ER Course Patient given IV fluids. Patient given 2 doses of IV Zofran, intramuscular Phenergan as well as intramuscular Haldol. Patient continues to complain of nausea and vomiting. Planing of abdominal pain. CT demonstrates no acute intra-abdominal pathology. Labs demonstrate mild leukocytosis likely secondary to vomiting. Patient states that she feels improved. I advised her to stop using marijuana as it is causing her cyclical vomiting. Patient is being discharged with Zofran and Pepcid. After discussing risks and benefits of further diagnostics, treatment plans, as well as indications for and risks of admission, the patient is agreeable to being discharged home. I have explained that their evaluation and treatment in the emergency department today is an important step towards them achieving better health but that their evaluation today is not intended to replace further evaluation and treatment by a physician in their local clinic. I have explained that while the current findings suggest no immediate life threatening emergency they will require further evaluation and treatment by a physician of their choice in their area. They understand that it will be necessary for them to review the final reports of their ED visit with their clinic physician. We have reviewed indications for return to the Emergency Department. I have explained that additional time may need to pass and/or additional testing as an outpatient may be necessary before a definitive diagnosis can be made. They tell me they are willing to follow up as instructed within the timeframe I recommend. They appear to understand what we discussed. Additionally they understand that if they are unable to be seen by an outpatient physician they are welcome, and in fact should, return to the Emergency Department for a repeat evaluation. The patient is stable at time of discharge. Laboratory Tests Test 06/29/20 10:05 06/29/20 10:52 White Blood Count 13.0 K/UL (4.8-10.8) H Red Blood Count 4.69 M/UL (4.20-5.40) Hemoglobin 12.8 G/DL (12.0-16.0) Hematocrit 40.1 % (37.0-47.0) Mean Corpuscular Volume 85 FL (80-99) Mean Corpuscular Hemoglobin 27.2 PG (27.0-31.0) Mean Corpuscular Hemoglobin Concent 31.8 G/DL (32.0-36.0) L Red Cell Distribution Width 12.7 % (11.6-14.8) Platelet Count 451 K/UL (150-450) H Mean Platelet Volume 7.1 FL (6.5-10.1) Neutrophils (%) (Auto) % (45.0-75.0) Lymphocytes (%) (Auto) % (20.0-45.0) Monocytes (%) (Auto) % (1.0-10.0) Eosinophils (%) (Auto) % (0.0-3.0) Basophils (%) (Auto) % (0.0-2.0) Differential Total Cells Counted 100 Neutrophils % (Manual) 86 % (45-75) H Lymphocytes % (Manual) 13 % (20-45) L Monocytes % (Manual) 1 % (1-10) Eosinophils % (Manual) 0 % (0-3) Basophils % (Manual) 0 % (0-2) Band Neutrophils 0 % (0-8) Platelet Estimate Adequate Platelet Morphology Normal Hypochromasia 1+ Sodium Level 143 MMOL/L (136-145) Potassium Level 3.5 MMOL/L (3.5-5.1) Chloride Level 105 MMOL/L (98-107) Carbon Dioxide Level 25 MMOL/L (21-32) Anion Gap 13 mmol/L (5-15) Blood Urea Nitrogen 14 mg/dL (7-18) Creatinine 0.9 MG/DL (0.55-1.30) Estimated Glomerular Filtration Rate > 60 mL/min (>60) Glucose Level 119 MG/DL (74-106) H Calcium Level 9.6 MG/DL (8.5-10.1) Magnesium Level 1.8 MG/DL (1.8-2.4) Total Bilirubin 0.5 MG/DL (0.2-1.0) Aspartate Amino Transferase (AST) 14 U/L (15-37) L Alanine Aminotransferase (ALT) 17 U/L (12-78) Alkaline Phosphatase 111 U/L (46-116) Total Protein 8.4 G/DL (6.4-8.2) H Albumin 4.6 G/DL (3.4-5.0) Globulin 3.8 g/dL Albumin/Globulin Ratio 1.2 (1.0-2.7) Lipase 131 U/L (73-393) Urine Color Pale yellow Urine Appearance Clear Urine pH 7 (4.5-8.0) Urine Specific [place] 1.010 (1.005-1.035) Urine Protein Negative (NEGATIVE) Urine Glucose (UA) Negative (NEGATIVE) Urine Ketones Negative (NEGATIVE) Urine Blood Negative (NEGATIVE) Urine Nitrite Negative (NEGATIVE) Urine Bilirubin Negative (NEGATIVE) Urine Urobilinogen Normal MG/DL (0.0-1.0) Urine Leukocyte Esterase Negative (NEGATIVE) Urine HCG, Qualitative Negative (NEGATIVE) Urine Opiates Screen Positive (NEGATIVE) H Urine Barbiturates Screen Negative (NEGATIVE) Phencyclidine (PCP) Screen Negative (NEGATIVE) Urine Amphetamines Screen Negative (NEGATIVE) Urine Benzodiazepines Screen Negative (NEGATIVE) Urine Cocaine Screen Negative (NEGATIVE) Urine Marijuana (THC) Screen Positive (NEGATIVE) H EKG Diagnostic Results Troponin ordered: No - abdominal pain EKG Time: 10:06 EP Interpretation: Jessica Roach MD Rate: normal Rhythm: NSR ST Segments: no acute changes ASA given to the pt in ED: No Rhythm Strip Diag. Results Rhythm Strip Time: 10:01 EP Interpretation: yes - Jessica Roach MD Rate: 85 bpm Rhythm: NSR, no PVC's, no ectopy Disposition: HOME, SELF-CARE Condition: Stable Scripts Famotidine* (Pepcid 20mg tablet*) 20 Mg Tablet 20 MG ORAL DAILY for Gerd, #30 TAB 0 Refills Prov: Jessica Roach M.D. 06/29/20 Ondansetron* (ZOFRAN*) 4 Mg Tablet 4 MG ORAL Q6H PRN for Nausea & Vomiting, #14 TAB Prov: Jessica Roach M.D. 06/29/20 Referrals: [facility],REFERRING (PCP) Additional Instructions: The patient was provided with discharge instructions, notified to follow-up with a primary care doctor and or specialist in the next 24-48 hours, and to return to the ED if they have worsening of their symptoms. Please note that this report is being documented using [email or web address] technology. This can lead to erroneous entry secondary to incorrect interpretation by the dictating instrument. Jessica Roach M.D. Jun 29, 2020 10:01
--- NOTE | 2020-06-29 10:08 | NUR ---
pt arrives to ER with complaints of abdominal pain with nausea and vomiting x few days. pt states history of gastritis and GERD. pt describes pain as sharp constant ache and shooting pain in all quadrants.
[2020-06-29 10:12] VITALS: BP 120/80
[2020-06-29 10:22] LABS: HEMATOCRIT 40.1 % (37.0-47.0); HEMOGLOBIN 12.8 G/DL (12.0-16.0); MEAN CORPUSCULAR VOLUME 85 FL (80-99); PLATELET COUNT 451 K/UL (150-450); RED BLOOD COUNT 4.69 M/UL (4.20-5.40); RED CELL DISTRIBUTION WIDTH 12.7 % (11.6-14.8)
[2020-06-29 10:33] LABS: ANION GAP 13 mmol/L (5-15); BLOOD UREA NITROGEN 14 mg/dL (7-18); CALCIUM 9.6 MG/DL (8.5-10.1); CARBON DIOXIDE 25 MMOL/L (21-32); CHLORIDE 105 MMOL/L (98-107); CREATININE 0.9 MG/DL (0.55-1.30); POTASSIUM 3.5 MMOL/L (3.5-5.1); SODIUM 143 MMOL/L (136-145)
[2020-06-29 10:37] LABS: ALANINE AMINOTRANSFERASE 17 U/L (12-78); ALBUMIN 4.6 G/DL (3.4-5.0); ALBUMIN/GLOBULIN RATIO 1.2 (1.0-2.7); ALKALINE PHOSPHATASE 111 U/L (46-116); ASPARTATE AMINO TRANSFERASE 14 U/L (15-37); BILIRUBIN,TOTAL 0.5 MG/DL (0.2-1.0)
--- NOTE | 2020-06-29 11:14 | NUR ---
pt is requesting more pain and nausea medication. pt has had 2 vomiting episodes since arrival. See MAR for orders
[2020-06-29 11:30] LABS: APPEARANCE,URINE CLEAR; BILIRUBIN, URINE NEGATIVE (NEGATIVE); COLOR,URINE PALE YELLOW; GLUCOSE, URINE (UA) NEGATIVE (NEGATIVE); KETONES,URINE NEGATIVE (NEGATIVE); LEUKOCYTE ESTERASE ,URINE NEGATIVE (NEGATIVE); NITRITE,URINE NEGATIVE (NEGATIVE); PH,URINE 7 (4.5-8.0); PROTEIN,URINE NEGATIVE (NEGATIVE); UROBILINOGEN,URINE NORMAL MG/DL (0.0-1.0)
[2020-06-29] MEDS ORDERED: Haloperidol 5mg/ml Inj IM ONE (12:15)
--- NOTE | 2020-06-29 12:50 | Diagnostic Imaging Report ---
EXAM: CT Abdomen and Pelvis Without Intravenous Contrast CLINICAL HISTORY: PAIN TECHNIQUE: Axial computed tomography images of the abdomen and pelvis without intravenous contrast. CTDI is 6.4 mGy and DLP is 334.5 mGy-cm. One or more of the following dose reduction techniques were used: automated exposure control, adjustment of the mA and/or kV according to patient size, use of iterative reconstruction technique. COMPARISON: CT abdomen/pelvis on 03/13/2020 FINDINGS: Lung bases: Unremarkable. No mass. No consolidation. ABDOMEN: Liver: Unremarkable. Gallbladder and bile ducts: Prior cholecystectomy. No ductal dilation. Pancreas: Unremarkable. No ductal dilation. Spleen: Unremarkable. No splenomegaly. Adrenals: Unremarkable. No mass. Kidneys and ureters: No hydronephrosis or stone. Stomach and bowel: Evaluation of the stomach is limited by underdistention. No mucosal thickening. PELVIS: Appendix: Appendix not visualized, but no CT evidence of acute appendicitis. Bladder: Distended bladder. No significant bladder wall thickening or stone. Reproductive: Unremarkable as visualized. ABDOMEN and PELVIS: Intraperitoneal space: Unremarkable. No free air. No significant fluid collection. Bones/joints: No acute fracture. No dislocation. Soft tissues: Unremarkable. Vasculature: Unremarkable. No abdominal aortic aneurysm. Lymph nodes: Unremarkable. No enlarged lymph nodes. Tubes, lines and devices: Intrauterine device in appropriate position. IMPRESSION: No acute findings in the abdomen or pelvis.
[2020-06-29] MEDS ORDERED: ZOFRAN4 M3 ORAL (13:54)
[2020-06-29] MEDS ORDERED: FAMOTIDINE20 MG ORAL (13:54)
== END 2020-06-29 15:46 | disposition home or self-care (01) ==
LOC: EMR 09:03
DX: R11.15 Cyclical vomiting syndrome unrelated to migraine (principal); D72.829 Elevated white blood cell count, unspecified; Z97.5 Presence of (intrauterine) contraceptive device
CPT/HCPCS: 36415; 74176; 80053; 80307; 81003; 81025; 83690; 83735; 85007; 85025; 93005; 96361; 96372; 96374; 96375; 96376; J1630; J2270; J2405; J2550; J7030; S0164; Z7502; 99284